=== PATIENT | male | born 1990 | race Caucasian/White ===

== ENCOUNTER 2017-02-03 10:21 | Emergency (ER) | payer OTHER ==
[2017-02-03 10:44] VITALS: BP 125/66
--- OUTSIDE RECORDS SUMMARY | 2017-02-03 10:58 | XMS REPORT | Summary of Care ---
:1990 Author Organization [facility] Address [address] [place] [id number] Care Team Providers Name Role Phone Manjinder Hidalgo Primary Care Physician Encounter Date(s): 12/24/16 - 12/24/[address] [id number] [facility] Discharge Diagnosis: CMTD (Ygkayti-Higdc-Wuxyq disease) Discharge Diagnosis: Finger abrasion, infected Discharge Diagnosis: IBS (irritable bowel syndrome) Discharge Disposition: 01 Discharged to Home or Self Care Attending Physician: Pasquale Min MD Referring Physician: Pasquale Min MD Vital Signs Most recent to oldest [Reference Range]: 1 Peripheral Pulse Rate [60-100 bpm] 83 bpm (12/24/16 3:34 PM) Respiratory Rate [12-20 br/min] 19 br/min (12/24/16 3:34 PM) SpO2 98 % (12/24/16 3:34 PM) Blood Pressure [90-130/60-90 mmHg] 112/72mmHg (12/24/16 3:34 PM) Mean Arterial Pressure, Cuff 85 mmHg (12/24/16 3:34 PM) Height/Length Measured 188 cm (12/24/16 3:34 PM) Weight Dosing 67.60 kg1 (12/24/16 3:35 PM) Weight Measured 67.6 kg (12/24/16 3:34 PM) BSA Measured 1.92 m2 (12/24/16 3:34 PM) Body Mass Index Measured 19.13 kg/m2 (12/24/16 3:34 PM) 1Result Comment: This result was because the dosing weight was either not entered or it is>30 days old. This result is based off: Weight Measured December 24, 2016 15:34:00 PRODUCTION SUPV by Eve Serrano LPN Problem List Condition Effective Dates Status Health Status Informant Hpqgang-Vgnld-pwtua disease(Confirmed) Active Allergies, Adverse Reactions, Alerts No Known Allergies Medications Bactrim DS 800 mg-160 mg oral tablet 1 tab(s), Oral, BID, X 10 days, # 20 tab(s), 0 Refill(s), Start Date: 12/24/16 16:01:00 PRODUCTION SUPV, Pharmacy: [facility] [place], [place] Start Date: 12/24/16 Stop Date: 01/03/17 Status: OrderedBentyl 20 mg oral tablet 1 tab(s), Oral, QID, # 40 tab(s), 0 Refill(s), Start Date: 12/08/14 21:14:00 PRODUCTION SUPV Start Date: 12/08/14 Stop Date: 05/17/16 Status: Completedcholestyramine 4 g/5 g oral powder for reconstitution 1 packet(s), Oral, BID, # 30 EA, 0 Refill(s), Start Date: 05/17/16 15:20:00 CDT , Pharmacy: [facility] [place], [place] Start Date: 05/17/16 Stop Date: 10/01/16 Status: Completedclindamycin 300 mg oral capsule 1 cap(s), Oral, q8hr interval, # 30 cap(s), 0 Refill(s), Start Date: 07/05/16 9: 04:00 CDT, [facility] [place] [place] Start Date: 07/05/16 Stop Date: 10/01/16 Status: CompletedImodium Multi-Symptom Relief 2 mg-125 mg oral tablet 1 tab(s), Oral, q6hr, PRN for loose stool, # 18 tab(s), 0 Refill(s), Start Date : 12/08/14 21:14:00 PRODUCTION SUPV Start Date: 12/08/14 Stop Date: 12/09/14 Status: CompletedZofran ODT 4 mg oral tablet, disintegrating 1 tab(s), Oral, TID, # 9 tab(s), 0 Refill(s), Start Date: 01/14/15 21:13:00 PRODUCTION SUPV Start Date: 12/08/14 Stop Date: 05/17/16 Status: Completed Results No data available for this section Immunizations No data available for this section Procedures No data available for this section Social History No data available for this section Assessment and Plan No data available for this section
--- OUTSIDE RECORDS SUMMARY | 2017-02-03 10:58 | XMS REPORT | Summary of Care ---
:1990 Demographics Address [address] [place] [address] Preferred Language Amharic Marital Status Not or Methodist Affiliation NPO Race Ethnic Group Not or Author Organization [facility] Address [address] [place] [phone] Care Team Providers Name Role Phone Pasquale Min Primary Care Physician Encounter Date(s): 01/14/17 - 01/14/17 [facility] [address] [place] [id number] [facility] Discharge Disposition: Discharged to Home or Self Care Attending Physician: Rachel Carrero MD Referring Physician: Rachel Carrero MD Vital Signs No data available for this section Problem List Condition Effective Dates Status Health Status Informant Mzcbsne-Fgrhc-ckdtt disease(Confirmed) Active Allergies, Adverse Reactions, Alerts No Known Allergies Medications Bactrim DS 800 mg-160 mg oral tablet 1 tab(s), Oral, BID, X 10 days, # 20 tab(s), 0 Refill(s), Start Date: 12/24/16 16:01:00 TIRE REPAIR MECHANIC, Pharmacy: [facility] [place] [place] Start Date: 12/24/16 Stop Date: 01/03/17 Status: CompletedBentyl 20 mg oral tablet 1 tab(s), Oral, QID, # 40 tab(s), 0 Refill(s), Start Date: 12/08/14 21:14:00 TIRE REPAIR MECHANIC Start Date: 12/08/14 Stop Date: 05/17/16 Status: Completedcholestyramine 4 g/5 g oral powder for reconstitution 1 packet(s), Oral, BID, # 30 EA, 0 Refill(s), Start Date: 05/17/16 15:20:00 CDT , Pharmacy: [facility] [place], [place] Start Date: 6/23/16 Stop Date: 10/01/16 Status: Completedclindamycin 300 mg oral capsule 1 cap(s), Oral, q8hr interval, # 30 cap(s), 0 Refill(s), Start Date: 07/05/16 9: 04:00 CDT, Pharmacy: [facility], [place] Start Date: 07/05/16 Stop Date: 10/01/16 Status: CompletedImodium Multi-Symptom Relief 2 mg-125 mg oral tablet 1 tab(s), Oral, q6hr, PRN for loose stool, # 18 tab(s), 0 Refill(s), Start Date : 12/08/14 21:14:00 TIRE REPAIR MECHANIC Start Date: 12/08/14 Stop Date: 12/09/14 Status: CompletedZofran ODT 4 mg oral tablet, disintegrating 1 tab(s), Oral, TID, # 9 tab(s), 0 Refill(s), Start Date: 12/08/14 21:13:00 TIRE REPAIR MECHANIC Start Date: 12/08/14 Stop Date: 05/17/16 Status: Completed Results No data available for this section Immunizations No data available for this section Procedures No data available for this section Social History No data available for this section Assessment and Plan No data available for this section
--- OUTSIDE RECORDS SUMMARY | 2017-02-03 10:58 | XMS REPORT | Continuity of Care Document ---
:1990 Author Organization [facility] ([facility]) Address [address] [place] [address] Phone [phone] Care Team Providers Name Role Phone Sarah Alvarez Primary Care Provider [phone] Source Comments This disclosure is being made pursuant to the Care Everywhere program, applicable federal and state laws, and may not contain all informaitonavailable regarding this patient.[facility] ([facility]) Active Allergies and Adverse Reactions Allergen Noted Date Severity Reactions Comments Lactose 02/15/2014 Diarrhea Per test previously done, slightly lactose intolerant No Known Allergies 03/22/2009 NO REACTION Current Medications No known medications Active Problems Problem Noted Date Chronic foot ulcer 09/12/2015 Dyspepsia 06/21/2014 Gastritis 02/15/2014 Diarrhea 12/07/2009 Unspecified deformity of ankle and foot, acquired 01/19/2008 Scoliosis associated with other condition 06/17/2007 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 Social History Tobacco Use Types Packs/Day Years Used Date Never Smoker Smokeless Tobacco: Never Used Tobacco Cessation:Counseling Given: Yes Comments: Alcohol Use Drinks/Week oz/Week Comments No Last Filed Vital Signs Vital Sign Reading Time Taken Blood Pressure 115/73 12/15/2014 1:50 PM ADMINISTRATIVE SUPPORT ASSISTANT Pulse 86 12/15/2014 1:50 PM ADMINISTRATIVE SUPPORT ASSISTANT Temperature 36.6 C (97.9 F) 12/15/2014 1:50 PM ADMINISTRATIVE SUPPORT ASSISTANT Respiratory Rate 20 06/10/2012 2:52 PM CDT Height 1.854 m (6' 0.99") 12/15/2014 1:50 PM ADMINISTRATIVE SUPPORT ASSISTANT Weight 62.143 kg (137 lb) 12/15/2014 1:50 PM ADMINISTRATIVE SUPPORT ASSISTANT Body Mass Index 18.08 12/15/2014 1:50 PM ADMINISTRATIVE SUPPORT ASSISTANT Oxygen Saturation 99% 01/23/2010 4:02 PM ADMINISTRATIVE SUPPORT ASSISTANT Plan of Care Health Maintenance Due Date Last Done Comments Hepatitis B Vaccine (1 of 3 - Primary Series) 1992 HPV Vaccine (1 of 3 - Male 3 Dose Series) 2003 Tdap Vaccine 2003 Lipid Disorder Screening 2010 MMR Vaccine 2010 Td Vaccine 2010 Varicella Vaccine (1 of 2 - Adult - No Evidence of 2010 Immunity) Influenza Vaccine: Seasonal (#1) 06/25/2016 Results from Last 3 Months Not on file
--- OUTSIDE RECORDS SUMMARY | 2017-02-03 10:59 | XMS REPORT | Summary of Care ---
:1990 Demographics Address [address] [place] [address] Preferred Language Kinyarwanda Marital Status Not or Holiness Affiliation NPO Race Ethnic Group Not or Author Organization [facility] Address [address] [place] [phone] Care Team Providers Name Role Phone Pako Pasquale Dumont Primary Care Physician Encounter Date(s): 01/07/17 - 01/07/[address] [address] [place] Discharge Diagnosis: Adjustment disorder with mixed anxiety and depressed mood Discharge Disposition: 01 Discharged to Home or Self Care Attending Physician: DONAL Smith Referring Physician: Pasquale Min MD Vital Signs No data available for this section Problem List Condition Effective Dates Status Health Status Informant Ferebql-Cdlas-aqahm disease(Confirmed) Active Allergies, Adverse Reactions, Alerts No Known Allergies Medications Bactrim DS 800 mg-160 mg oral tablet 1 tab(s), Oral, BID, X 10 days, # 20 tab(s), 0 Refill(s), Start Date: 12/24/16 16:01:00 LAUNDRY ROUTEMAN, Pharmacy: [facility] [place], [place] Start Date: 12/24/16 Stop Date: 01/03/17 Status: CompletedBentyl 20 mg oral tablet 1 tab(s), Oral, QID, # 40 tab(s), 0 Refill(s), Start Date: 12/08/14 21:14:00 LAUNDRY ROUTEMAN Start Date: 12/08/14 Stop Date: 05/17/16 Status: Completedcholestyramine 4 g/5 g oral powder for reconstitution 1 packet(s), Oral, BID, # 30 EA, 0 Refill(s), Start Date: 05/17/16 15:20:00 CDT , Pharmacy: [facility] [place], [place] Start Date: 05/17/16 Stop Date: 10/01/16 Status: Completedclindamycin 300 mg oral capsule 1 cap(s), Oral, q8hr interval, # 30 cap(s), 0 Refill(s), Start Date: 07/05/16 9: 04:00 CDT, [facility], [place] Start Date: 07/05/16 Stop Date: 10/01/16 Status: CompletedImodium Multi-Symptom Relief 2 mg-125 mg oral tablet 1 tab(s), Oral, q6hr, PRN for loose stool, # 18 tab(s), 0 Refill(s), Start Date : 12/08/14 21:14:00 LAUNDRY ROUTEMAN Start Date: 12/08/14 Stop Date: 12/09/14 Status: CompletedZofran ODT 4 mg oral tablet, disintegrating 1 tab(s), Oral, TID, # 9 tab(s), 0 Refill(s), Start Date: 12/08/14 21:13:00 LAUNDRY ROUTEMAN Start Date: 12/08/14 Stop Date: 05/17/16 Status: Completed Results No data available for this section Immunizations No data available for this section Procedures No data available for this section Social History No data available for this section Assessment and Plan No data available for this section
--- NOTE | 2017-02-03 11:32 | ERNOTE ---
Upper Extremity HPI - Narrative Date of Service: 02/03/17 - General Extremities Pain Location: hand: right Time Seen by Provider: 02/03/17 10:47 Source: patient Exam Limitations: no limitations - Immun/Allergies/Home Medications Allergies/Adverse Reactions: Allergies Allergy/AdvReac Type Severity Reaction Status Date / Time No Known Allergies Allergy Verified 02/03/17 10:44 Home Medications: HOME MEDICATIONS Cephalexin Monohydrate [Keflex] 500 mg PO QID #40 cap 02/03/17 [Last Taken Unknown] - History of Present Illness Narrative: Pt. comes in with c/o R hand open wounds in multiple creases of the ponce surface of his hand. Pt. states that he has been under treatment for these for a week. Pt. denies any SOB, CP, NVD, fever, numbness or tingling. Pt. denies any alleviating or aggravating factors. Pt. denies any drainage from the wounds but does state that R third finger has become swollen over the past week. Review of Systems - Review of Systems Constitutional: Present: no symptoms reported. Absent: recent illness, fever, chills, fatigue, malaise EYE: Present: no symptoms reported ENT: Present: no symptoms reported Respiratory: Present: no symptoms reported. Absent: shortness of breath, cough , wheezing Cardiology: Present: no symptoms reported. Absent: chest pain, palpitations, edema Gastrointestinal/Abdominal: Present: no symptoms reported. Absent: nausea, vomiting, diarrhea Genitourinary: Present: no symptoms reported. Absent: frequency, pain, dysuria , decreased urinary output Musculoskeletal: Present: no symptoms reported. Absent: back pain, joint pain Skin: Present: dryness, lesions - cracked open areas in folds on ponce surface of R hand Neurological: Present: no symptoms reported. Absent: headache, dizziness/light- headedness, numbness, tingling Endocrine: Present: no symptoms reported All Other Systems: All systems neg except as marked - Patient's Past Medical History Patient History - Medical: Other - dry hands Patient History - Cardiac/Respiratory: No pertinent hx Patient History - Cancer: No Hx of Cancer Patient History - Surgical Procedures: No surgical history - Social History Smoking Status: Never smoker Have you smoked in the past 12 months: No Physical Exam - Physical Exam General Appearance: Present: wd/wn, alert, no apparent distress Eye Exam: Normal inspection: bilateral, PERRL: bilateral, EOMI: bilateral Ears, Nose, Throat: Present: normal ENT inspection, normal pharynx Neck: Present: normal inspection, nontender. Absent: lymphadenopathy (R), lymphadenopathy (L) Respiratory: Present: no respiratory distress, normal breath sounds, no accessory muscle use, chest nontender, lungs clear Cardiovascular/Chest: Present: regular rate, rhythm, no murmur, normal peripheral pulses Gastrointestinal/Abdominal: Present: normal bowel sounds, nontender, nondistended, soft, no organomegaly Back Exam: Present: normal inspection, normal range of motion, no CVA tenderness , no vertebral tenderness Extremity Exam: Present: normal inspection, non-tender, normal range of motion, no edema Neurological Exam: Present: alert, oriented, normal mood/affect, no motor/ sensory deficits Skin Exam: Present: warm/dry, other - extremely dry skin to B hands. Swollen red R third fingers. Multiple areas of cracked open skin to B hands. Absent: pallor, skin rash ED Progress - Vital Signs Patient's Vital Signs:: I have reviewed the patient's vital signs. Vital Signs: Vital Signs 02/03/17 10:41 Temperature 36.7 C Pulse Rate 80 Respiratory 10 L Rate Blood Pressure 125/66 O2 Sat by Pulse 97 Oximetry - Progress/Reassessment Chief Complaint: Hand Injury/Pain Departure Clinical Impression: Dry skin, Cracked skin Cellulitis Qualifiers: Site of cellulitis: extremity Site of cellulitis of extremity: upper extremity Laterality: right Qualified Code(s): L03.113 - Cellulitis of right upper limb - Departure Disposition: Home self-care Condition: Good Instructions: Cellulitis, Adult, Azeg-fq-Wgty Additional Instructions: Please follow up with primary provider in 2-3 days. Please use hydrophillic lotion at least three times a day and after washing your hands or using chemicals. Use neosporin twice a day and stop all other creams. Referrals: NAVJOT VAUGHN [Primary Care Provider] - Prescriptions: Cephalexin Monohydrate [Keflex] 500 mg PO QID #40 cap
== END 2017-02-03 11:43 | disposition home or self-care (01) ==
LOC: ER 10:21
DX: L03.113 Cellulitis of right upper limb (principal)

== ENCOUNTER 2017-05-27 01:00 | Emergency (ER) | payer OTHER ==
[2017-05-27 01:11] VITALS: BP 123/55
--- NOTE | 2017-05-27 01:19 | ERNOTE ---
Medical Problem HPI - Narrative Date of Service: 05/27/17 - General Chief Complaint: Laceration Time Seen by Provider: 05/27/17 01:16 - Immun/Allergies/Home Medications Immunizations: IMMUNIZATION HX Immunizations Up to Date Yes History of Influenza Vaccine Yes Hx Pneumococcal Vaccination No Allergies/Adverse Reactions: Allergies No Known Allergies Allergy (Verified 05/27/17 01:11) Home Medications: HOME MEDICATIONS Cephalexin Monohydrate [Keflex] 500 mg PO TID 05/27/17 [Last Taken Unknown] - History of Present History Narrative: This is a 26-year-old male right hand dominant who comes to the emergency room with a laceration to the middle phalanx of his right middle finger. The patient states that he was using a cuticle remover to remove some cuticle and callus around the injury. He says that the callus remover dug down deep and took out a chunk of skin. He held pressure on it and thought it stopped bleeding but when he went to bed and took a look at it it was still bleeding. He did not to do so he came to the ER. He has no other complaints. Pain is actually well controlled. He is not on any blood thinners. Review of Systems - Narrative Narrative: As in the HPI - Review of Systems Skin: Present: See HPI All Other Systems: All systems neg except as marked - Patient's Past Medical History Patient History - Medical: Other Patient History - Cardiac/Respiratory: No pertinent hx Patient History - Cancer: No Hx of Cancer Patient History - Surgical Procedures: No surgical history Patient History - Other: None - Social History Living Situations: home Psych History: No pertinent hx Smoking Status: Never smoker Alcohol Use: occasionally - Immunizations Immunizations Up to Date: Yes Hx Pneumococcal Vaccination: No History of Influenza Vaccine: Yes Physical Exam - Physical Exam General Appearance: Present: wd/wn, alert, no apparent distress Ears, Nose, Throat: Present: normal ENT inspection Neck: Present: normal inspection, nontender Respiratory: Present: no respiratory distress, lungs clear Cardiovascular/Chest: Present: regular rate, rhythm Gastrointestinal/Abdominal: Present: normal bowel sounds, nontender, nondistended, soft Back Exam: Present: normal inspection, normal range of motion, no CVA tenderness , no vertebral tenderness Extremity Exam: Present: other - bleeding injury as described in skin exam Neurological Exam: Present: alert, oriented, no motor/sensory deficits Skin Exam: Present: normal color, other - patient has a 1 cm x 1 cm area on the ventral aspect of the middle phalanx of the right middle finger which has been removed. There is oozing blood. There is no rapid blood loss. There are no edges which could be sutured back together. Lymphatic Exam: Present: no adenopathy ED Progress - Vital Signs Patient's Vital Signs:: I have reviewed the patient's vital signs. Vital Signs: Vital Signs 05/27/17 01:05 Temperature 36.4 C L Pulse Rate 74 Respiratory 18 Rate Blood Pressure 123/55 O2 Sat by Pulse 97 Oximetry - Progress/Reassessment Chief Complaint: Laceration Progress Note-Subjective: 05/27/17 01:42 I held direct pressure over the wound. This was done for 5 minutes. Subsequent significant decrease in bleeding. Then wrapped it up tight. The patient is given instructions on watching for fever, redness, pus, increased pain. If any of these happen he will return to the ER. He will avoid messing with it. He'll follow-up with his family doctor. Plan - Plan Plan: I have explained to the patient that there is little which I can do here Departure - Departure Clinical Impression: Finger injury Disposition: Home self-care Condition: Stable Additional Instructions: Keep a close eye on the area for signs of infection. If you develop fever, pus , redness, increased pain he should return to the ER. Stas family doctor and set up a follow-up appointment. Return for any new or worrisome symptoms. Referrals: NAVJOT VAUGHN [Primary Care Provider] -
== END 2017-05-27 01:55 | disposition home or self-care (01) ==
LOC: ER 01:00
DX: S61.212A Laceration without foreign body of right middle finger without damage to nail, initial encounter (principal); Y93.E8 Activity, other personal hygiene